=== PATIENT | male | born 1965 | race African-American/Black ===

== ENCOUNTER 2021-06-05 21:45 | Observation (INO) | payer OTHER ==
[2021-06-05] MEDS ORDERED: methylPREDNISolone Sod Succ/PF 125 MG/2 ML VIAL ONE (23:00)
[2021-06-05] MEDS ORDERED: Famotidine/PF 20 mg/2ml Vial ONE (23:00)
[2021-06-05] MEDS ORDERED: diphenhydrAMINE 50 MG/ML VIAL ONE (23:00)
[2021-06-05] MEDS ORDERED: Losartan 25 MG TAB PO SCH (23:45)
[2021-06-05] MEDS ORDERED: Morphine 4 MG/ML VIAL ONE (23:49)
[2021-06-05] MEDS ORDERED: Acetaminophen 500 MG TAB ONE (23:50)
[2021-06-05] MEDS ORDERED: Carvedilol 25 MG TAB PO SCH (23:59)
[2021-06-06] MEDS ORDERED: Lidocaine Viscous Sol 2% 15 ml UD Cup ONE (01:24)
[2021-06-06] MEDS ORDERED: Mag-Al 1200 mg/1200 mg/30 ML UDCUP ONE (01:24)
[2021-06-06] MEDS ORDERED: hydrALAZINE 20 MG/ML VIAL ONE (02:27)
[2021-06-06 03:50] LABS: SARS-CoV-2 NAA Rapid Test Not Detected (NotDetected)
[2021-06-06] MEDS ORDERED: cloNIDine 0.1 MG TAB PO PRN (08:08)
[2021-06-06] MEDS ORDERED: hydrALAZINE 20 MG/ML VIAL SLOW IVP PRN (08:08)
[2021-06-06] MEDS ORDERED: Acetaminophen 325 MG TAB PO PRN (08:11)
[2021-06-06] MEDS ORDERED: Ondansetron PF 4 MG/2 ML Vial IVP PRN (08:11)
[2021-06-06] MEDS ORDERED: Ondansetron ODT 4 MG TAB PO PRN (08:11)
[2021-06-06] MEDS ORDERED: EPINEPHrine 1 mg/ml MDV (1ml Charge) IM PRN ×2 (08:13→08:26)
[2021-06-06] MEDS ORDERED: Mometasone 200 MCG/Formoterol 5 MCG 120 PUFF INHALER INH SCH ×2 (08:30→18:30)
[2021-06-06] MEDS ORDERED: Famotidine/PF 20 mg/2ml Vial SLOW IVP SCH (09:00)
[2021-06-06] MEDS ORDERED: diphenhydrAMINE 12.5 MG/5 ML UDCUP PO SCH (09:00)
[2021-06-06] MEDS ORDERED: diphenhydrAMINE 50 MG/ML VIAL IVP SCH (09:00)
[2021-06-06] MEDS ORDERED: Famotidine 20 MG TAB ONE (09:03)
[2021-06-06] MEDS ORDERED: Amoxicillin/Potassium Clav 875 MG TAB ONE (09:03)
[2021-06-06] MEDS ORDERED: methylPREDNISolone Sod Succ 40 MG VIAL ONE (09:03)
[2021-06-06] MEDS ORDERED: diphenhydrAMINE 12.5 MG/5 ML UDCUP ONE (09:03)
[2021-06-06] MEDS ORDERED: Clopidogrel Bisulfate 75 MG TAB ONE (09:03)
[2021-06-06] MEDS: Losartan 25 MG TAB PO SCH (09:18)
[2021-06-06] MEDS: Amlodipine 10 MG TAB PO SCH (09:21)
[2021-06-06] MEDS: Famotidine 20 MG TAB PO SCH ×2 (09:22→22:32)
[2021-06-06] MEDS: Carvedilol 6.25 MG TAB PO SCH ×2 (09:22→22:32)
[2021-06-06] MEDS: Amoxicillin/Potassium Clav 875 MG TAB PO SCH ×2 (09:23→22:32)
[2021-06-06] MEDS: Clopidogrel Bisulfate 75 MG TAB PO SCH (09:23)
[2021-06-06] MEDS: methylPREDNISolone Sod Succ 40 MG VIAL IVP SCH ×2 (09:34→22:31)
[2021-06-06] MEDS ORDERED: Loratadine 10 MG TAB PO SCH (12:00)
[2021-06-06 12:40] LABS: #Lymphocytes 1.4 thou/uL (1.20-3.40); #Monocytes 0.3 thou/uL (0.11-0.59); %Basophils 0.1 % (0.0-1.0); %Eosinophils 0.1 % (0.0-10.0); %Lymphocytes 13.3 % (21.0-51.0); %Neutrophils 83.6 % (42.0-75.0); Hemoglobin 12.9 g/dL (14.0-18.0); Mean Corpuscular HGB CONC 31.4 g/dL (32.0-36.0); Mean Corpuscular Volume 92.4 fL (78.0-98.0); Mean Platelet Volume 8.5 fL (7.4-10.4); Platelet Count 237 thou/uL (130-400); Red Blood Cell (RBC) Count 4.44 mill/uL (4.70-6.10); White Blood Cell (WBC) Count 10.8 thou/uL (4.8-10.8)
[2021-06-06 13:04] LABS: Anion Gap 11 mmol/L (10-20); BUN (Urea Nitrogen) 15 mg/dL (8.4-25.7); Calc. Creatinine Clearance 0 mL/min (70-130); Calcium 9.4 mg/dL (7.8-10.44); Carbon Dioxide 24 mmol/L (22-29); Chloride 105 mmol/L (98-107); Glucose 137 mg/dL (70-105); Magnesium 2.1 mg/dL (1.6-2.6); Sodium 136 mmol/L (136-145)
[2021-06-06 13:07] LABS: Troponin I Less than 0.010 ng/mL (< 0.028)
[2021-06-06 22:40] VITALS: BMI 51.5
[2021-06-07] MEDS ORDERED: methylPREDNISolone Sod Succ 40 MG VIAL IVP SCH (06:00)
[2021-06-07 08:07] VITALS: BP 153/72; TEMP 97.4
[2021-06-07] MEDS ORDERED: Loratadine 10 MG TAB PO SCH (09:00)
[2021-06-07] MEDS: Amlodipine 10 MG TAB PO SCH (09:16)
[2021-06-07] MEDS: Amoxicillin/Potassium Clav 875 MG TAB PO SCH (09:16)
[2021-06-07] MEDS: Clopidogrel Bisulfate 75 MG TAB PO SCH (09:17)
[2021-06-07] MEDS: Famotidine 20 MG TAB PO SCH (09:17)
[2021-06-07] MEDS: Carvedilol 6.25 MG TAB PO SCH (09:17)
[2021-06-07] MEDS: Losartan 25 MG TAB PO SCH (09:18)
== END 2021-06-07 11:05 | disposition home or self-care (01) ==
LOC: ERS 21:45 → ERHOLD 06-06 02:42 → 2SW 06-06 20:58
PROVIDERS: ADMIT Internal Medicine; ATTEND Internal Medicine
DX: T78.06XA Anaphylactic reaction due to food additives, initial encounter (principal); I16.0 Hypertensive urgency; I10 Essential (primary) hypertension; J45.909 Unspecified asthma, uncomplicated; K21.9 Gastro-esophageal reflux disease without esophagitis; E78.5 Hyperlipidemia, unspecified; G47.33 Obstructive sleep apnea (adult) (pediatric); I25.10 Atherosclerotic heart disease of native coronary artery without angina pectoris; D64.9 Anemia, unspecified; J05.10 Acute epiglottitis without obstruction; E66.9 Obesity, unspecified; Z68.43 Body mass index [BMI] 50.0-59.9, adult; Z20.822 Contact with and (suspected) exposure to COVID-19; Z88.6 Allergy status to analgesic agent; Z91.018 Allergy to other foods; Z79.02 Long term (current) use of antithrombotics/antiplatelets; Z79.82 Long term (current) use of aspirin; Z79.899 Other long term (current) drug therapy
CPT/HCPCS: 0240U; 80048; 83735; 84484; 85025; 93005; 94760; 96372; 96374; 96375; 96376; G0378; J0360; J1200; J2270; J2920; J2930; Q0163; S0028